=== PATIENT | male | born 1975 | race Caucasian/White ===

== ENCOUNTER 2016-08-26 08:56 | Observation (INO) ==
[2016-08-26] MEDS ORDERED: *HR* Morphine 2 MG/ML SYRINGE IVP ONE (09:32)
[2016-08-26] MEDS ORDERED: Ketorolac 30 MG/ML VIAL IVP ONE ×2 (09:32→09:50)
[2016-08-26] MEDS ORDERED: 0.9 % Sodium Chloride 1,000 ML IVC ONE (09:32)
--- NOTE | 2016-08-26 09:35 | Emergency Department Note ---
Disposition Clinical Impression: Appendicitis Qualifiers: Appendicitis type: acute appendicitis Acute appendicitis type: unspecified acute appendicitis type Qualified Code(s): K35.80 - Unspecified acute appendicitis Disposition: Admitted As Inpatient Condition: Good Abdominal Pain HPI - General Chief Complaint: ED Abdominal Pain Stated Complaint: Kidney Stones Time Seen by Provider: 08/26/16 09:23 Source: patient Mode of arrival: ambulatory Limitations: no limitations Nursing Notes Reviewed: Yes Vital Signs Reviewed: Yes - History of Present Illness HPI Narrative: 41-year-old male presents for evaluation of right lower flank pain. Patient states the pain woke him up in the middle of the night. Pain is in the right lower lumbar with radiation around to his right abdomen. Denies history of prior. Denies history of kidney stones. No aggravating or alleviating factors identified. Denies any fevers. Notes some nausea but no symptoms of emesis. No hematuria. No change in bowels or bladder. No chest pain or shortness of breath. Patient does not take any pain medication prior to arrival. Patient still has his appendix and gallbladder. Patient has been nothing by mouth since 7:00 this morning. Pt Subjective Complaint: abdominal pain Pain Scale: 7 - Related Data Home Medications Medication Instructions Recorded Confirmed FLUoxetine HCl [PROzac] 20 mg PO DAILY 07/19/16 08/26/16 SUMAtriptan [Imitrex] 25 mg PO DAILY PRN 08/26/16 08/26/16 Allergies Allergy/AdvReac Type Severity Reaction Status Date / Time No Known Allergies Allergy Verified 07/19/16 10:12 All systems ED: reviewed and negative except as stated. Constitutional: Reports: as per HPI. Denies: fever Eyes: Reports: as per HPI ENT ED: Reports: as per HPI Cardiovascular: Reports: as per HPI. Denies: chest pain Respiratory: Reports: as per HPI. Denies: cough, dyspnea Gastrointestinal: Reports: as per HPI, abdominal pain, nausea. Denies: vomiting , diarrhea, constipation Genitourinary: Reports: as per HPI. Denies: dysuria, hematuria Musculoskeletal: Reports: as per HPI Integumentary: Reports: as per HPI Neurological: Reports: as per HPI Psychiatric: Reports: as per HPI Endocrine: Reports: as per HPI Abdominal Pain PMH - Past Medical History Medical history: Reports: no medical history Male Surgical History: Reports: Tonsillectomy Psychiatric history: Reports: depression - Social History Smoking status: Current every day smoker Alcohol use: Reports: occasionally Drug use: Reports: none Physical Exam - General Limitations: no limitations General appearance: alert, in no apparent distress - Head Head exam: atraumatic, normocephalic, normal inspection - Eye Eye exam: Present: normal appearance, PERRL, EOMI - ENT ENT exam: normal exam, mucous membranes moist - Neck Neck exam: Present: normal inspection, trachea midline - Chest Chest inspection: Present: normal inspection, symmetric chest wall rise - Respiratory Respiratory exam: Present: normal lung sounds bilaterally. Absent: respiratory distress - Cardiovascular Cardiovascular exam: Present: regular rate, normal rhythm - Abdominal Exam Abdominal exam: Present: soft, tenderness (Right lower abdominal tenderness). Absent: guarding, rebound - Extremities Exam Extremities exam: Present: normal inspection, full ROM. Absent: tenderness, pedal edema - Back Exam Back exam: Present: normal inspection. Absent: CVA tenderness (R), CVA tenderness (L) - Neurological Exam Neurological exam: Present: alert, oriented X3 - Skin Skin exam: Present: warm, dry, intact, normal color Course Course Narrative: Patient seen and examined upon arrival. Patient ambulated the treatment area. Patient's resting on the stretcher. Patient does present with his history is assisted of kidney stones and renal colic. Patient will get basic lab work including hepatic panel as well as lipase as well as urinalysis. Patient will get IV fluids pain control as well as CT the abdomen and pelvis without contrast. Disposition pending. - Reevaluation(s) Reevaluation #1: Patient seen and updated on plan of care. Patient does have CT proven appendicitis. Discussed with the radiologist. Images reviewed by me. Time: 10:28 - Consultations Consultation #1: Spoke with Surgery who recommends admission to the floor. Time: 10:38 Vital Signs Temperature 97.8 F 08/26/16 09:13 Pulse Rate 88 08/26/16 09:13 Respiratory Rate 16 08/26/16 09:13 Blood Pressure 169/94 08/26/16 09:13 O2 Sat by Pulse Oximetry 98 08/26/16 09:13 Temperature 97.8 F 08/26/16 09:13 Pulse Rate 62 08/26/16 11:19 Respiratory Rate 15 08/26/16 11:19 Blood Pressure 125/81 08/26/16 11:19 O2 Sat by Pulse Oximetry 97 08/26/16 11:19 Oxygen Delivery Oxygen Delivery Room Air Abdominal Pain - MDM Narrative Medical decision making narrative: 41-year-old male patient for evaluation of right flank pain with radiation into his right lower abdomen. Patient was moderately tender on exam. No rebound. Voluntary guarding. Patient has a mild leukocytosis and CT proven acute appendicitis with periappendiceal fat stranding. No evidence of perforation. No free fluid in the pelvis. Patient scan was discussed with radiologist. Patient will be admitted to the surgical service for further intervention. Patient was started on antibiotics in the emergency department. Patient's been nothing by mouth for the past 2 hours. She will be admitted to the surgical service for further intervention. Patient was updated on plan of care. No other concerns. - Lab Data Lab results reviewed: Yes I reviewed the patient's lab results. Result diagrams: 08/26/16 09:42 08/26/16 09:42 Lab Results 08/26/16 08/26/16 Range/Units 09:42 09:42 WBC 12.7 H (4.3-11.1) K/mcL RBC 5.17 (4.19-5.50) M/mcL Hgb 16.1 (12.9-16.9) g/dL Hct 46.8 (37.5-50.1) % MCV 90.5 (83.0-100.0) fL MCH 31.1 (28.0-33.3) pg MCHC 34.4 (31.6-35.5) g/dL RDW 12.6 (11.5-14.5) % Plt Count 244 (140-400) K/mcL MPV 9.5 (9.4-12.4) fL Immature Gran % 0.3 (0-4) % Seg Neutrophils % 71.4 % Lymphocytes % 17.2 % Monocytes % 9.5 % Eosinophils % 1.4 % Basophils % 0.2 % Neutrophils # 9.1 H (1.6-8.9) K/mcL Lymphocytes # 2.2 (0.6-4.6) K/mcL Monocytes # 1.2 (0.0-1.3) K/mcL Eosinophils # 0.2 (0.0-0.6) K/mcL Basophils # 0.0 (0.0-0.2) K/mcL Sodium 138 (136-145) mEq/L Potassium 3.9 (3.5-4.5) mEq/L Chloride 105 (98-109) mEq/L Carbon Dioxide 26 (19-29) mEq/L BUN 13 (8-26) mg/dL Creatinine 0.83 (0.72-1.25) mg/dL Est GFR ( Amer) > 60 (> 60) Est GFR (Non-Af Amer) > 60 (> 60) BUN/Creatinine Ratio 16 (6-26) Glucose 114 H (70-99) mg/dL Calculated Osmolality 287 (280-300) Calcium 9.4 (8.6-10.8) mg/dL Total Bilirubin 0.4 (0.2-1.2) mg/dL Direct Bilirubin 0.1 (0.0-0.5) mg/dL Indirect Bilirubin 0.3 (0.0-1.2) mg/dL AST 15 (5-34) Units/L ALT 27 (0-55) Units/L Alkaline Phosphatase 78 (38-126) Units/L Serum Total Protein 7.0 (6.0-8.3) g/dL Albumin 3.5 (3.5-5.0) g/dL Globulin 3.5 (2.4-3.5) g/dL Albumin/Globulin Ratio 1.0 L (1.1-2.2) Lipase 48 (8-78) Units/L - Radiology Data Radiology results reviewed: Yes I reviewed the patient's radiology results. Abdomen/Pelvis CT 08/26/16 09:32 IMPRESSION: 1. Dilated appendix with periappendiceal inflammatory stranding consistent with acute appendicitis without obvious perforation. These findings were discussed with Jacky Corona at 10:17 a.m. 08/26/2016. 2. Hiatal hernia. D/ / Tad Cooper MD / Tad Cooper MD Interpreting Provider: Tad Cooper MD Critical Care Time Critical Care Time: Yes Total Critical Care Time: 35 Attestation: Time managing acute appendicitis. S.B.A.R. - S.B.A.R. Situation: Demographics Background: Presenting Complaint Assessment: Vital Signs, Course and respsone to treatment, Patient/Family Expectation, Pertinant Lab Results Recommendation: Barrier(s) to disposition, Recommendation based on pending studies, treatments, or consults Mik Report Given to: Dr. Deandra Houser Repor Time: 10:40 Attestation Statement - Attestation Attestation: Patient was seen with resident physician. I reviewed the history, physical, assessment and plan, and agree with the findings. I also personally evaluated this patient and had [id number] time with this patient. 41-year-old male presents emergency Department with chief complaint of right-sided flank pain radiating down into the right lower quadrant. Patient states the pain started in the middle the night and has been sharp and continuous since then. Had some nausea no vomiting. Some difficulty urinating area and no dysuria. Patient states he is relatively healthy individual does not have significant medical conditions. On examination vital signs stable. ENT is unremarkable. Heart and lungs normal. Abdomen soft with mild tenderness in the right mid abdomen, in the right lower quadrant. Extremities are unremarkable. Neurologically patient is intact. We will do CT scan to look for renal stones and other causes of abdominal pain. We will also check labs and treat pain. Disposition will depend on the findings during the workup. CT scan of the abdomen revealed acute appendicitis. Patient also had an elevated white blood cell count. His pain was controlled with medication. Surgery was notified, and agreed to accept the patient for admission and surgical intervention. Patient remained hemodynamically stable while in the emergency department. I Agree with resident physician assessment and plan.
[2016-08-26 09:51] LABS: Basophils % 0.2 %; Eosinophils # 0.2 K/mcL (0.0-0.6); Eosinophils % 1.4 %; Hematocrit 46.8 % (37.5-50.1); Hemoglobin 16.1 g/dL (12.9-16.9); Immature Granulocytes % 0.3 % (0-4); Lymphocytes # 2.2 K/mcL (0.6-4.6); Lymphocytes % 17.2 %; Mean Corpuscular HGB Conc 34.4 g/dL (31.6-35.5); Mean Corpuscular Hemoglobin 31.1 pg (28.0-33.3); Mean Corpuscular Volume 90.5 fL (83.0-100.0); Mean Platelet Volume 9.5 fL (9.4-12.4); Monocytes # 1.2 K/mcL (0.0-1.3); Monocytes % 9.5 %; Neutrophils # 9.1 K/mcL (1.6-8.9); Platelet Count 244 K/mcL (140-400); Red Blood Count 5.17 M/mcL (4.19-5.50); Red Cell Distribution Width 12.6 % (11.5-14.5); Segmented Neutrophils % 71.4 %
[2016-08-26 10:04] LABS: Alanine Aminotransferase 27 Units/L (0-55); Albumin 3.5 g/dL (3.5-5.0); Alkaline Phosphatase 78 Units/L (38-126); Aspartate Amino Transferase 15 Units/L (5-34); BUN/Creatinine Ratio 16 (6-26); Bilirubin,Direct 0.1 mg/dL (0.0-0.5); Bilirubin,Indirect 0.3 mg/dL (0.0-1.2); Bilirubin,Total 0.4 mg/dL (0.2-1.2); Blood Urea Nitrogen 13 mg/dL (8-26); Calcium 9.4 mg/dL (8.6-10.8); Carbon Dioxide 26 mEq/L (19-29); Chloride 105 mEq/L (98-109); Globulin 3.5 g/dL (2.4-3.5); Glucose 114 mg/dL (70-99); Lipase 48 Units/L (8-78); Osmolality,Calculated 287 (280-300); Potassium 3.9 mEq/L (3.5-4.5); Sodium 138 mEq/L (136-145); eGFR For African Americans > 60 (> 60); eGFR For Non-African Americans > 60 (> 60)
[2016-08-26] MEDS ORDERED: cefOXitin 2,000 MG in D5% in Water (Mini-Bag+) 100 ML IVPB ONE (10:27)
[2016-08-26] MEDS ORDERED: *HR* HYDROmorphone (PF) 1 MG/ML SYRINGE IVP ONE (10:28)
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
[2016-08-26 12:02] LABS: Bilirubin,Urine Negative (Negative); Blood,Urine Negative (Negative); Color,Urine Yellow (Yellow); Glucose,Urine (UA) Normal (Normal); Ketones,Urine Negative (Negative); Leukocyte Esterase,Urine Negative (Negative); Nitrite,Urine Negative (Negative); PH,Urine 7.5 pH Units (5.0-8.0); Protein,Urine Negative (Neg-Trace); Specific Gravity,Urine 1.023 (1.010-1.025); Urobilinogen,Urine Normal (Normal)
[2016-08-26 12:05] LABS: Bacteria,Urine None Seen per hpf (None-Few); Hyaline Casts,Urine None Seen per lpf (None-Few); RBC,Urine 0-3 per hpf (0-3); Squamous Epithelial Cell,Urine Few per lpf (None-Few); WBC,Urine 0-3 per hpf (0-3)
[2016-08-26] MEDS ORDERED: *HR* HYDROmorphone (PF) 1 MG/ML SYRINGE IVP PRN (12:07)
[2016-08-26] MEDS ORDERED: *HR* Morphine 2 MG/ML SYRINGE IVP PRN ×2 (12:07→19:16)
[2016-08-26] MEDS ORDERED: Ondansetron 4 MG/2 ML VIAL IVP PRN ×2 (12:07→19:16)
[2016-08-26] MEDS ORDERED: 0.9 % Sodium Chloride 1,000 ML IVC SCH ×2 (12:15→19:16)
[2016-08-26] MEDS ORDERED: Nicotine 21 MG PATCH.TD24 TD SCH (12:15)
[2016-08-26 12:18] LABS: Clarity,Urine Cloudy (Clear)
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
[2016-08-26] MEDS ORDERED: *HR* FentaNYL (PF) 100 MCG/2 ML VIAL ONE ×2 (16:21→17:42)
[2016-08-26] MEDS ORDERED: *HR* Midazolam HCl 2 MG/2 ML VIAL ONE (16:22)
[2016-08-26] MEDS ORDERED: *HR* Propofol 200 MG/20 ML VIAL IVP ONE (16:22)
[2016-08-26] MEDS ORDERED: Famotidine 20 MG/2 ML VIAL IVP ONE (16:23)
[2016-08-26] MEDS ORDERED: Metoclopramide 10 MG/2 ML VIAL IVP ONE (16:24)
[2016-08-26] MEDS ORDERED: *HR* Rocuronium Bromide 50 MG/5 ML VIAL ONE (16:24)
[2016-08-26] MEDS ORDERED: Lidocaine -MPF 2% 2 ML VIAL ONE (16:24)
[2016-08-26] MEDS ORDERED: *HR* Succinylcholine 200 MG/10 ML VIAL IVP ONE (16:24)
[2016-08-26] MEDS ORDERED: Ipratropium/Albuterol Neb 3 ML IH ONE (16:25)
[2016-08-26] MEDS ORDERED: Lidocaine -MPF 4% 5 ML AMPUL ONE (16:26)
[2016-08-26] MEDS ORDERED: Acetaminophen IV 1,000 MG/100 ML INFUS..BTL ONE (17:08)
[2016-08-26] MEDS ORDERED: CefOXitin 2,000 MG VIAL IVPB ONE (17:19)
[2016-08-26] MEDS ORDERED: Propofol 500 MG/50 ML INFUS..BTL ONE (17:38)
[2016-08-26] MEDS ORDERED: EPHEDrine 50 MG/ML VIAL ONE (17:43)
[2016-08-26] MEDS ORDERED: Dexamethasone 4 MG/ML VIAL ONE (17:58)
[2016-08-26] MEDS ORDERED: Ondansetron 4 MG/2 ML VIAL ONE (17:58)
[2016-08-26] MEDS ORDERED: Neostigmine Methylsulfate 3 MG/3 ML SYRINGE ONE ×2 (18:06→18:07)
[2016-08-26] MEDS ORDERED: Ketorolac 30 MG/ML VIAL ONE (18:11)
--- NOTE | 2016-08-26 18:15 | Operative Note ---
Date of procedure: 08/26/16 Pre-op diagnosis: Acute appendicitis Post-op diagnosis: same Procedure: Laparoscopic appendectomy Complications: None immediate Anesthesia: GETA, local Local Anesthetics: 0.5% Sensorcaine HCL SubQ (cc) (30) Surgeon: Lili Liriano Estimated blood loss (cc): 5 Specimen: appendix Condition: stable Disposition: PACU Procedure in Detail: The patient was brought into the operating suite and placed supine on the operating table. Sign-in was performed and everyone was in agreement. Anesthesia was induced and patient was endotracheally intubated by anesthesia without incident. An OG tube was placed by anesthesia. The abdomen was prepped and draped in the usual sterile fashion. A timeout was performed and again everyone was in agreement. A supraumbilical incision was made through the skin and the subcutaneous tissue with an 11 blade. Towel clamps were placed on either side of the umbilicus for retraction. S-retractors were used to dissect down to the anterior abdominal wall linea alba fascia. A Veress needle was placed into this incision and a water drop test confirmed placement and the abdomen was insufflated. We then entered the abdomen with the 5 mm 0 degree laparoscope on a 5 mm X-ericka trocar. The area under entry was visualized and there was no bleeding and no apparent bowel injury. We placed a suprapubic 5 mm port under direct visualization after first incising the skin with an 11 blade. The laparoscope was placed through this and we exchanged the supraumbilical port for a 12 mm port under direct visualization. We then placed another 5 mm port in the left lower quadrant position under direct visualization after first incising the skin with an 11 blade. The patient was placed in slight Trendelenburg left side down position. The cecum was located as was the appendix. The appendix was grasped and retracted anteriorly and caudally with a laparoscopic [place]. A [place] was used to dissect between the mesoappendix and the appendix at the base of the cecum. The mesoappendix was transected with a laparoscopic flex-ex ETS stapler using a white load. The appendix was transected at the base of the cecum with the same stapler utilizing a white load. The appendix was placed in a laparoscopic Endo Catch bag and removed via the supraumbilical incision site. Both staple lines were evaluated and there was no bleeding and both staple lines were intact. The area was irrigated with sterile saline which was then suctioned free from the abdomen. The insufflation was suctioned free from the abdomen and all trochars removed. We closed the abdominal wall at the supraumbilical incision site with an 0 Vicryl [id number] stitch. A 30 cc of 0.5% Marcaine was injected subcutaneously at the 3 port sites. The skin at the two 5 mm port sites was closed with 4-0 Monocryl interrupted subcuticular stitches. The skin at the supraumbilical incision site was closed with a 4-0 Monocryl running subcuticular stitch. Steri-Strips were applied to the wounds. The patient was extubated in the OR and tolerated the procedure well and was taken to PACU after all lap and instrument counts were correct at the end of the case.
[2016-08-26] MEDS ORDERED: *HR* Promethazine 25 MG/ML VIAL IVP PRN (18:17)
--- NOTE | 2016-08-26 18:57 | Anesthesia Evaluation Post Op ---
Date of Encounter: 08/26/16 Time of Encounter: 18:56 - Vital Signs Vital Signs: Vital Signs/O2 Sat/Glucose, Most Current Temp Pulse Resp BP Pulse Ox 08/26/16 18:46 89 16 117/77 96 08/26/16 18:36 79 16 120/72 96 08/26/16 18:26 97.1 F L 82 16 118/73 98 08/26/16 16:35 16 96 - Lungs Lungs: Clear Ascult./Percussion - Airway Airway: Non-obstructed - Cardiovascular Regular Rate - Mental Status Mental Status: Alert & Oriented, Answers Appropriately - Pain Pain Scale: 2 Pain Scale used: Numeric (1 - 10) - Nausea Vomiting Nausea Vomiting: Not Present - Hydration Hydration: Ice chips - Discharge PostOp Status: Transfer Patient to floor Anes Supervising Prov Stmt: Pt seen/evaluated, VSS and pt has met criteria for discharge to floor. - MD Josselin
[2016-08-26] MEDS ORDERED: *HR* HYDROmorphone (PF) 1 MG/ML SYRINGE ONE (19:03)
[2016-08-26] MEDS ORDERED: Gabapentin 300 MG CAPSULE ONE (19:04)
[2016-08-26] MEDS: *HR* HYDROmorphone (PF) 1 MG/ML SYRINGE IVP PRN ×2 (19:05→19:10)
[2016-08-26] MEDS ORDERED: Naloxone 0.4 MG/ML INJ IVP PRN (19:16)
[2016-08-26] MEDS: *HR* OxyCODONE/APAP 5/325 TABLET PO PRN (20:53)
[2016-08-26] MEDS: Piperacillin/Tazobactam 3.375 GM in D5% in Water (Mini-Bag+) 100 ML IVPB SCH (23:10)
[2016-08-27 04:39] LABS: Basophils % 0.1 %; Hematocrit 42.5 % (37.5-50.1); Hemoglobin 14.5 g/dL (12.9-16.9); Immature Granulocytes % 0.4 % (0-4); Lymphocytes # 0.9 K/mcL (0.6-4.6); Lymphocytes % 6.8 %; Mean Corpuscular HGB Conc 34.1 g/dL (31.6-35.5); Mean Platelet Volume 9.7 fL (9.4-12.4); Monocytes # 0.5 K/mcL (0.0-1.3); Monocytes % 3.9 %; Platelet Count 234 K/mcL (140-400); Red Blood Count 4.67 M/mcL (4.19-5.50); Red Cell Distribution Width 12.7 % (11.5-14.5); Segmented Neutrophils % 88.8 %
[2016-08-27 04:53] LABS: BUN/Creatinine Ratio 15 (6-26); Blood Urea Nitrogen 13 mg/dL (8-26); Calcium 8.5 mg/dL (8.6-10.8); Carbon Dioxide 24 mEq/L (19-29); Chloride 105 mEq/L (98-109); Glucose 196 mg/dL (70-99); Osmolality,Calculated 288 (280-300); Potassium 4.5 mEq/L (3.5-4.5); Sodium 136 mEq/L (136-145); eGFR For African Americans > 60 (> 60); eGFR For Non-African Americans > 60 (> 60)
[2016-08-27 07:44] VITALS: BP 116/69
[2016-08-27] MEDS: *HR* OxyCODONE/APAP 5/325 TABLET PO PRN (07:44)
[2016-08-27] MEDS: Piperacillin/Tazobactam 3.375 GM in D5% in Water (Mini-Bag+) 100 ML IVPB SCH (07:45)
[2016-08-27] MEDS ORDERED: FLUoxetine 20 MG CAPSULE PO SCH (09:00)
[2016-08-27] MEDS ORDERED: Nicotine 21 MG PATCH.TD24 TD SCH (09:00)
--- NOTE | 2016-08-27 10:24 | Discharge Summary ---
Date of Encounter: 08/27/16 Time of Encounter: 10:00 - Discharge Diagnosis (1) Acute appendicitis Priority: Primary Status: Resolved Qualifiers: Acute appendicitis type: unspecified acute appendicitis type Qualified Code (s): K35.80 - Unspecified acute appendicitis (2) Tobacco abuse Priority: Secondary Status: Chronic - Discharge Medications Prescriptions: OxyCODONE/APAP 5/325 [Percocet 5/325 MG] 1 each PO Q4HR PRN #30 tablet PRN Reason: Pain Amoxicillin/Clavulanate [Augmentin] 875 mg PO BIDWM #10 tablet Docusate [Colace] 100 mg PO BID #30 capsule Home Medications: FLUoxetine HCl [Prozac] 20 mg PO DAILY 07/19/16 [History] SUMAtriptan [Imitrex] 25 mg PO DAILY PRN 08/26/16 [History] Amoxicillin/Clavulanate [Augmentin] 875 mg PO BIDWM #10 tablet 08/27/16 [Rx] Docusate [Colace] 100 mg PO BID #30 capsule 08/27/16 [Rx] OxyCODONE/APAP 5/325 [Percocet 5/325 MG] 1 each PO Q4HR PRN #30 tablet 08/27/16 [Rx] Allergies/Adverse Reactions: Allergies No Known Allergies Allergy (Verified 07/19/16 10:12) General Surgery Exam Initial Vital Signs Temp Pulse Resp BP Pulse Ox 97.8 F 88 16 169/94 98 08/26/16 09:13 08/26/16 09:13 08/26/16 09:13 08/26/16 09:13 08/26/16 09:13 - General physical appearance well developed, well nourished, no distress - Eyes normal ocular movement - ENT normal mucosa, atraumatic, normocephalic - Neck trachea midline - Respiratory normal respiratory effort, clear to auscultation - Cardiovascular Cardiovascular exam: Present: RRR - Abdomen Abdomen general surgery: Present: bowel sounds present, soft, tender (Expected postoperative tenderness) - Incision Incision: Present: clean and dry, intact - Integumentary Integumentary general surgery: Present: warm and dry - Neurologic Present: CN 2-12 grossly intact - Psychiatric Psychiatric general surgery: Present: appropriate, oriented to person, oriented to place, oriented to time, speech is normal, memory intact Date of admission: 08/26/16 10:48 Primary care physician: Ting Delcid CNP Discharging clinician: Lili Liriano (Antonio De La Garza) Anticipated date of discharge: 08/27/16 - Patient Status Disposition: Home, Self-Care Condition: Good Functional capacity at discharge: independent ambulation Overall status at discharge: patient is progressing back to baseline - Discharge Instructions Follow Up With: Ting Delcid CNP [Primary Care Provider] - (1-2 weeks hospital follow-up) Raysa De La Garza CNP [Advanced Practice Nurse] - 09/05/16 10:45 am (Surgery follow-up) Additional Instructions: #1 may shower, no tub bath for 2 weeks #2 wash incisions with soap and water and pat dry daily #3 no lifting, pushing, pulling more than 15 pounds for the next 2 weeks #4 no driving until off narcotics for 24 hours and able to safely react in the car #5 may climb stairs - Diet and Activity Activity: increase activity as tolerated Diet: advance to your usual diet - Hospital Course Hospital course: Mr. Presley is a 41 year old male presented to the hospital with complaints of abdominal pain. He was found to have radiologic evidence of acute appendicitis. He was taken to the operating room for laparoscopic appendectomy with Dr. Liriano. On postoperative day #1, he is tolerating a regular diet without nausea or vomiting, pain is well-controlled, vital signs are stable and afebrile, he is voiding and ambulating without difficulty. We will transition him to oral antibiotics and begin discharge planning. Plan for outpatient follow-up in the next 10-14 days. - Time Spent with Patient Total time spent providing and/or coordinating discharge services: Less than 30 minutes Labs on day of discharge: Labs from last 24 hours 08/27/16 08/27/16 08/26/16 04:30 04:30 11:30 WBC 13.5 H RBC 4.67 Hgb 14.5 D Hct 42.5 MCV 91.0 MCH 31.0 MCHC 34.1 RDW 12.7 Plt Count 234 MPV 9.7 Immature Gran % 0.4 Seg Neutrophils % 88.8 Lymphocytes % 6.8 Monocytes % 3.9 Eosinophils % 0.0 Basophils % 0.1 Neutrophils # 12.0 H Lymphocytes # 0.9 Monocytes # 0.5 Eosinophils # 0.0 Basophils # 0.0 Sodium 136 Potassium 4.5 Chloride 105 Carbon Dioxide 24 BUN 13 Creatinine 0.89 Est GFR ( Amer) > 60 Est GFR (Non-Af Amer) > 60 BUN/Creatinine Ratio 15 Glucose 196 H Calculated Osmolality 288 Calcium 8.5 L Urine Color Yellow Urine Clarity Cloudy A Urine pH 7.5 Ur Specific [place] 1.023 Urine Protein Negative Urine Glucose (UA) Normal Urine Ketones Negative Urine Blood Negative Urine Nitrite Negative Urine Bilirubin Negative Urine Urobilinogen Normal Ur Leukocyte Esterase Negative Urine Microscopic RBC 0-3 Urine Microscopic WBC 0-3 Ur Squamous Epith Cells Few Urine Bacteria None Seen Hyaline Casts None Seen Ur Culture Indicated? NO - Attending Attestation I examined this patient and my medical decision-making was reviewed with the ORCHID GROWER/PA/Advanced Practice Nurse/Resident Physician. I agree with the documented findings, disposition and treatment plan as described except to the extent set forth below.
== END 2016-08-27 11:35 | disposition home or self-care (01) ==
LOC: 3ANU 08:56 → EMEROO 08:56 → 3ANU 10:58
PROVIDERS: ADMIT Nurse Practitioner Family; ATTEND Surgery